=== PATIENT | female | born 1995 | race African-American/Black ===

== ENCOUNTER 2016-05-31 06:46 | Emergency (ER) | payer BC ==
[~2016-05-31] VITALS: Ht 157.5 cm; Wt 79.3 kg
[2016-05-31 06:53] VITALS: TEMP 37.8; O2SAT 99; Ht 157.5 cm; Wt 79.3 kg
[2016-05-31] MEDS ORDERED: OXYCODONE HCL IR 5 MG TAB (IMMEDIATE RELEASE) PO STA (07:10)
[2016-05-31] MEDS ORDERED: IBUPROFEN 600 MG TAB PO STA (07:10)
[2016-05-31 08:05] LABS: PARTIAL THROMBOPLASTIN RATIO 0.9; PROTHROMBIN TIME (PATIENT) 10.3 SECONDS (9.0-12.0)
[2016-05-31 08:12] LABS: BASO % 0.3 %; BASO ABS # 0.02 K/uL (0-0.2); EOS % 2.1 %; HEMATOCRIT 35.6 % (37-47); IG% 0.1 %; LYMPH % 15.3 %; LYMPH ABS # 1.18 K/uL (1.2-3.4); MEAN CELL VOLUME 73.4 fL (80-100); MEAN CORPUSCULAR HEMOGLOBIN 25.4 pg (25-34); MEAN CORPUSCULAR HGB CONC 34.6 g/dl (32-36); MEAN PLATELET VOLUME 12.3 fL (7.4-10.4); MONO % 4.2 %; PLATELET COUNT 301 K/uL (130-400); RED BLOOD COUNT 4.85 M/uL (4.2-5.4); WHITE BLOOD COUNT 7.69 K/uL (4.8-10.8)
[2016-05-31] MEDS ORDERED: OXYC-57 PO (08:13)
[2016-05-31] MEDS ORDERED: IBUP600T44 PO (08:13)
[2016-05-31] MEDS ORDERED: KETOROLAC TROMETHAMINE 30 MG/ML VIAL IV STA (08:16)
[2016-05-31 08:26] LABS: BUN/CREATININE RATIO 17.8 (10-20); CALCIUM 9.7 mg/dl (8.5-10.1); CREATININE 0.87 mg/dl (0.60-1.20); POTASSIUM 4.1 mmol/L (3.5-5.1)
--- NOTE | 2016-05-31 08:44 | EMERGENCY ROOM VISIT NOTE ---
History First contact with patient: 07:02 Chief Complaint: LEG PAIN,LEG INJURY Stated Complaint: SICKLE CELL CRISIS- RT LEG History of Present Illness The patient is a 20 year old female who presents to the Emergency Room with complaints of right leg pain since Saturday night. The patient states that she has sickle cell. On Saturday she started with some pain in the left hip. Saturday the pain in the left hip went away and then Saturday night she started getting pain in the right thigh it has progressively moved into her right hip as well as her right ankle. The patient denies any injury. The patient denies any redness or swelling to the leg. The patient denies any recent travel. 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 She is from [facility] and [facility] [employer]. She will be graduating in July. The patient states that she has oxycodone and Motrin 600 mg at home to take for pain. She took the oxycodone 5 mg at 3 AM with minimal relief of the pain. The patient denies any chest pain, shortness of breath, weakness. Review of Systems 10 system review was performed and was negative unless stated otherwise history of present illness. Past Medical/Surgical History Medical Problems: (1) Sickle cell anemia Family History Patient reports no known family medical history. Social History Smoking Status: Never Smoker Housing Status: lives with roommate Occupation Status: student Current/Historical Medications Scheduled Oxycodone/Acetaminophen 5MG/325MG (Percocet 5MG/325MG), 1 TAB PO QID Scheduled PRN Ibuprofen (Motrin), 600 MG PO Q6H PRN for Pain Allergies Coded Allergies: No Known Allergies (Unverified , 12/30/15) Physical Exam Vital Signs Date Time Temp Pulse Resp B/P Pulse Ox O2 Delivery O2 Flow Rate FiO2 05/31/16 08:27 18 135/66 05/31/16 06:53 37.8 103 18 138/88 99 Room Air Physical Exam GENERAL: 20-year-old female appears in no acute distress. MENTAL Status: Alert and oriented 3. EYES: PERRLA. EOMs intact. Conjunctiva without paleness. NECK: Supple, no lymphadenopathy noted. No carotid bruits noted. LUNGS: Clear auscultation without wheezes rales or rhonchi. CARDIAC: Regular rate and rhythm without murmur. Pulses is full and equal throughout. ABDOMEN: Positive bowel sounds all 4 quadrants. Soft, nontender to palpation without organomegaly or masses. LEFT HIP: Nontender to palpation. Full range of motion. RIGHT HIP: Nontender to palpation. Full range of motion. RIGHT THIGH: No erythema or edema noted. Slight tenderness palpation over the anterior aspect. RIGHT ANKLE: No erythema or edema noted. No deformity noted. Nontender to palpation. Full range of motion. Medical Decision & Procedures Laboratory Results 05/31/16 07:40 Red Blood Count 4.85, Mean Corpuscular Volume 73.4, Mean Corpuscular Hemoglobin 25.4, Mean Corpuscular Hemoglobin Concent 34.6, Mean Platelet Volume 12.3, Neutrophils (%) (Auto) 78.0, Lymphocytes (%) (Auto) 15.3, Monocytes (%) (Auto) 4.2, Eosinophils (%) (Auto) 2.1, Basophils (%) (Auto) 0.3, Neutrophils # (Auto) 6.00, Lymphocytes # (Auto) 1.18, Monocytes # (Auto) 0.32, Eosinophils # (Auto) 0.16, Basophils # (Auto) 0.02 05/31/16 07:40 Test 05/31/16 07:40 White Blood Count 7.69 K/uL (4.8-10.8) Red Blood Count 4.85 M/uL (4.2-5.4) Hemoglobin 12.3 g/dL (12.0-16.0) Hematocrit 35.6 % (37-47) Mean Corpuscular Volume 73.4 fL (80-100) Mean Corpuscular Hemoglobin 25.4 pg (25-34) Mean Corpuscular Hemoglobin Concent 34.6 g/dl (32-36) Platelet Count 301 K/uL (130-400) Mean Platelet Volume 12.3 fL (7.4-10.4) Neutrophils (%) (Auto) 78.0 % Lymphocytes (%) (Auto) 15.3 % Monocytes (%) (Auto) 4.2 % Eosinophils (%) (Auto) 2.1 % Basophils (%) (Auto) 0.3 % Neutrophils # (Auto) 6.00 K/uL (1.4-6.5) Lymphocytes # (Auto) 1.18 K/uL (1.2-3.4) Monocytes # (Auto) 0.32 K/uL (0.11-0.59) Eosinophils # (Auto) 0.16 K/uL (0-0.5) Basophils # (Auto) 0.02 K/uL (0-0.2) RDW Standard Deviation 36.8 fL (36.4-46.3) RDW Coefficient of Variation 13.6 % (11.5-14.5) Immature Granulocyte % (Auto) 0.1 % Immature Granulocyte # (Auto) 0.01 K/uL (0.00-0.02) Prothrombin Time 10.3 SECONDS (9.0-12.0) Prothromb Time International Ratio 1.0 (0.9-1.1) Activated Partial Thromboplast Time 23.3 SECONDS (21.0-31.0) Partial Thromboplastin Ratio 0.9 Anion Gap 7.0 mmol/L (3-11) Est Creatinine Clear Calc Drug Dose 99.8 ml/min Estimated GFR () 110.4 Estimated GFR (Non- 95.2 BUN/Creatinine Ratio 17.8 (10-20) Calcium Level 9.7 mg/dl (8.5-10.1) Total Bilirubin 0.7 mg/dl (0.2-1) Direct Bilirubin 0.2 mg/dl (0-0.2) Aspartate Amino Transf (AST/SGOT) 33 U/L (15-37) Alanine Aminotransferase (ALT/SGPT) 57 U/L (12-78) Alkaline Phosphatase 68 U/L (45-117) Total Protein 8.1 gm/dl (6.4-8.2) Albumin 4.3 gm/dl (3.4-5.0) Lipase 123 U/L (73-393) Medications Administered Medications (Trade) Dose Ordered Sig/Millie Route Start Time Stop Time Status Last Admin Dose Admin Ibuprofen (Motrin Tab) 600 mg NOW STAT PO 05/31/16 07:10 05/31/16 07:12 DC 05/31/16 07:25 600 MG Oxycodone HCl (Roxicodone Immediate Rel Tab) 5 mg NOW STAT PO 05/31/16 07:10 05/31/16 07:12 DC 05/31/16 07:25 5 MG Ketorolac Tromethamine (Toradol Inj) 30 mg NOW STAT IV 05/31/16 08:16 3/16/17 08:17 DC 05/31/16 08:26 30 MG ED Course The patient was evaluated. The patient was given OxyIR 5 mg by mouth and Motrin 600 mg by mouth for her pain. CBC and differential, coags, renal profile was ordered and the patient was reevaluated and her pain was still 8 out of 10. The patient was given Toradol 30 mg IV. The patient was reevaluated was feeling better. Labs are reviewed and were unremarkable. The patient's hemoglobin was 12. The patient was informed of all findings and discharged home in stable condition. Medical Decision Differential diagnosis include sickle cell crisis, leg strain, radicular pain Impression Primary Impression: Leg pain, right Departure Information Condition GOOD Referrals No Doctor, Assigned (PCP) Forms HOME CARE DOCUMENTATION FORM, IMPORTANT VISIT INFORMATION Patient Instructions [facility] [employer] Additional Instructions Ibuprofen 600 mg every 6 hours with food for pain. If symptoms persist or worsen, follow-up with [facility].
[2016-05-31 09:24] VITALS: BP 126/60; PULSE 57
[2016-05-31 09:24] LABS: COMPLETE YES; OVALOCYTES 1+
== END 2016-05-31 09:46 | disposition home or self-care (01) ==
LOC: C.EDB 06:48 → C.EDA 09:46
DX: M79.604 Pain in right leg (principal); D57.1 Sickle-cell disease without crisis

== ENCOUNTER 2016-05-31 18:55 | Inpatient (IN) | payer BC ==
[~2016-05-31] VITALS: Ht 157.5 cm; Wt 78.5 kg
[~2016-05-31 18:55] MED LIST: IBUP600T44 PO; OXYC-57 PO
[2016-05-31] MEDS ORDERED: SODIUM CHLORIDE 0.9% 1000ML 1,000 ML IV STA (19:37)
[2016-05-31] MEDS ORDERED: KETOROLAC TROMETHAMINE 30 MG/ML VIAL IV STA (19:37)
[2016-05-31] MEDS ORDERED: ONDANSETRON INJ 2 MG/ML 2 ML VIAL IV STA (19:37)
--- NOTE | 2016-05-31 19:41 | EMERGENCY ROOM VISIT NOTE ---
History Report prepared by Tita: Aracelis Haider Under the Supervision of: Dr. Romain Brown D.O. First contact with patient: 19:30 Chief Complaint: LEG PAIN,LEG INJURY History of Present Illness The patient is a 20 year old female who presents to the Emergency Room with complaints of worsening right leg pain for the past 4 days. She reports the pain started in her groin but has radiated into her thigh and down to her ankle. The patient has a history of sickle cell anemia and states the last time she was hospitalized was in 2014. She states "I think I'm having a sickle cell crisis in my right thigh". She rates her pain as an 8/10 and states it has been worsening throughout the day. She was seen here in the ED earlier today for the same symptoms and tried to go home, but states her pain worsened, so she came back. Ibuprofen has provided no relief. She admits to some low back pain, stating this is the first time she has experienced that type of pain. She admits to some recent nausea but has not vomited. She denies any recent cough or fever. Her LMP was last week and normal. She denies any chance of being . The patient also denies any urinary symptoms. 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 A total of 10 systems reviewed and were otherwise negative. Past Medical & Surgical Medical Problems: (1) Failure of outpatient treatment (2) Sickle cell anemia (3) Sickle cell pain crisis Family History Patient reports no known family medical history. Social History Smoking Status: Never Smoker Smokeless Tobacco Use: No Alcohol Use: none Drug Use: none Marital Status: single Housing Status: lives with roommate Occupation Status: student Current/Historical Medications Scheduled Oxycodone/Acetaminophen 5MG/325MG (Percocet 5MG/325MG), 1 TAB PO QID Scheduled PRN Ibuprofen (Motrin), 600 MG PO Q6H PRN for Pain Allergies Coded Allergies: No Known Allergies (Unverified , 05/31/16) Physical Exam Vital Signs Date Time Temp Pulse Resp B/P Pulse Ox O2 Delivery O2 Flow Rate FiO2 05/31/16 22:11 82 22 99 05/31/16 22:06 82 18 99 05/31/16 22:01 143/71 05/31/16 21:36 90 19 99 05/31/16 21:06 86 22 100 05/31/16 21:01 117/63 05/31/16 21:00 79 16 99 05/31/16 20:30 80 20 99 05/31/16 20:25 70 23 94 05/31/16 20:11 76 05/31/16 20:08 137/77 05/31/16 19:08 37.5 93 18 132/77 99 Room Air Physical Exam GENERAL: Patient is awake, alert, in no acute distress, patient is resting comfortably and showing no signs of anxiety EYES: The conjunctivae are clear. The pupils are round and reactive. EARS, NOSE, MOUTH AND THROAT: The nose is without any evidence of any deformity. Mucous membranes are moist tongue is midline NECK: The neck is nontender and supple. RESPIRATORY: Normal respiratory effort is noted there is no evidence of wheezing rhonchi or rales CARDIOVASCULAR: Regular rate and rhythm noted there no murmurs rubs or gallops normal S1 normal S2 GASTROINTESTINAL: The abdomen is soft. Bowel sounds are present in all quadrants. Abdomen is nontender MUSCULOSKELETAL/EXTREMITIES: There is no evidence of gross deformity full range of motion is noted in the hips and shoulders SKIN: There is no obvious evidence of any rash. There are no petechiae, pallor or cyanosis noted. NEUROLOGIC: Patient is awake alert and oriented x3 strength is symmetric patellar reflexes are 2+ bilaterally Medical Decision & Procedures ER Provider Diagnostic Interpretation: This X-Ray was reviewed and interpreted by myself and the radiologist. CHEST ONE VIEW PORTABLE IMPRESSION: No significant change compared to the prior study. No acute process. Electronically signed by: Adam Najera M.D. 05/31/2016 8:49 PM Laboratory Results 05/31/16 20:00 Red Blood Count 4.62, Mean Corpuscular Volume 74.0, Mean Corpuscular Hemoglobin 25.5, Mean Corpuscular Hemoglobin Concent 34.5, Mean Platelet Volume 12.1, Neutrophils (%) (Auto) 63.6, Lymphocytes (%) (Auto) 25.6, Monocytes (%) (Auto) 6.1, Eosinophils (%) (Auto) 4.3, Basophils (%) (Auto) 0.2, Neutrophils # (Auto) 3.95, Lymphocytes # (Auto) 1.59, Monocytes # (Auto) 0.38, Eosinophils # (Auto) 0.27, Basophils # (Auto) 0.01 05/31/16 20:00 Test 05/31/16 20:00 05/31/16 20:20 White Blood Count 6.21 K/uL (4.8-10.8) Red Blood Count 4.62 M/uL (4.2-5.4) Hemoglobin 11.8 g/dL (12.0-16.0) Hematocrit 34.2 % (37-47) Mean Corpuscular Volume 74.0 fL (80-100) Mean Corpuscular Hemoglobin 25.5 pg (25-34) Mean Corpuscular Hemoglobin Concent 34.5 g/dl (32-36) Platelet Count 286 K/uL (130-400) Mean Platelet Volume 12.1 fL (7.4-10.4) Neutrophils (%) (Auto) 63.6 % Lymphocytes (%) (Auto) 25.6 % Monocytes (%) (Auto) 6.1 % Eosinophils (%) (Auto) 4.3 % Basophils (%) (Auto) 0.2 % Neutrophils # (Auto) 3.95 K/uL (1.4-6.5) Lymphocytes # (Auto) 1.59 K/uL (1.2-3.4) Monocytes # (Auto) 0.38 K/uL (0.11-0.59) Eosinophils # (Auto) 0.27 K/uL (0-0.5) Basophils # (Auto) 0.01 K/uL (0-0.2) RDW Standard Deviation 37.1 fL (36.4-46.3) RDW Coefficient of Variation 13.8 % (11.5-14.5) Immature Granulocyte % (Auto) 0.2 % Immature Granulocyte # (Auto) 0.01 K/uL (0.00-0.02) Polychromasia 1+ Target Cells 1+ Absolute Reticulocyte Count 0.13 10^6/uL (0.02-0.10) Percent Reticulocyte Count 2.7 % (0.5-2.0) Immature Reticulocyte Fraction 15.0 % (3.0-15.9) Reticulocyte Hemoglobin Content 25.3 PG (28.2-36.6) Anion Gap 10.0 mmol/L (3-11) Est Creatinine Clear Calc Drug Dose 93.9 ml/min Estimated GFR () 103.2 Estimated GFR (Non- 89.0 BUN/Creatinine Ratio 18.8 (10-20) Calcium Level 9.4 mg/dl (8.5-10.1) Total Bilirubin 0.7 mg/dl (0.2-1) Direct Bilirubin 0.2 mg/dl (0-0.2) Aspartate Amino Transf (AST/SGOT) 31 U/L (15-37) Alanine Aminotransferase (ALT/SGPT) 50 U/L (12-78) Alkaline Phosphatase 64 U/L (45-117) Total Creatine Kinase 84 U/L (26-192) Total Protein 7.7 gm/dl (6.4-8.2) Albumin 4.1 gm/dl (3.4-5.0) Lipase 156 U/L (73-393) Human Chorionic Gonadotropin, Qual NEG (NEG) Urine Color YELLOW Urine Appearance CLEAR (CLEAR) Urine pH 5.5 (4.5-7.5) Urine Specific [place] 1.017 (1.000-1.030) Urine Protein NEG (NEG) Urine Glucose (UA) NEG (NEG) Urine Ketones NEG (NEG) Urine Occult Blood NEG (NEG) Urine Nitrite NEG (NEG) Urine Bilirubin NEG (NEG) Urine Urobilinogen NEG (NEG) Urine Leukocyte Esterase NEG (NEG) Laboratory results per my review. Medications Administered Medications (Trade) Dose Ordered Sig/Millie Route Start Time Stop Time Status Last Admin Dose Admin Ketorolac Tromethamine 30 mg 30 mg NOW STAT IV 05/31/16 19:37 05/31/16 19:39 DC 05/31/16 20:21 30 MG Sodium Chloride (Nss 1000ml) 1,000 ml @ 999 mls/hr Q1H1M STAT IV 05/31/16 19:37 05/31/16 20:37 DC 05/31/16 20:21 999 MLS/HR Ondansetron HCl (Zofran Inj) 4 mg NOW STAT IV 05/31/16 19:37 05/31/16 19:39 DC 05/31/16 20:21 4 MG Morphine Sulfate (MoRPHine SULFATE INJ) 4 mg Q15M PRN IV 05/31/16 19:45 06/01/16 00:17 DC 05/31/16 20:34 4 MG Hydromorphone HCl (Dilaudid Inj) 0.5 mg NOW STAT IV 05/31/16 22:16 05/31/16 22:24 DC 05/31/16 22:29 0.5 MG ED Course 1934: The patient was evaluated in room C1. A complete history and physical examination were performed. 1936: Zofran 4 mg IV, NSS 1000 ml @ 999 mls/hr IV, Toradol 30 mg IV. 1944: Morphine Sulfate 4 mg IV. 2129: I reevaluated the patient. She is not feeling much better and still complains of pain. I discussed her going home versus remaining in the hospital for further evaluation and management and she would like to remain in the hospital. I will contact the hospital medicine team. 2211: I discussed the patient's case with Dr. Riojas [facility] Hospitalist. The patient will be further evaluated. Medical Decision Prior records reviewed and summarized as above. Triage Nursing notes reviewed. The patient's history was concerning for swelling and redness of the skin. Differential diagnosis: Etiologies such as cellulitis, abscess, MRSA infection, DVT, necrotizing fasciitis, dermatitis, drug eruption, as well as others were entertained.. The patient is a 20-year-old female who has a history of sickle cell disease who presented to the emergency department for an evaluation of lower extremity pain. The patient was seen in our facility earlier today for similar complaints. She returns because of ongoing symptoms. She was treated with IV fluids IV pain medication in the emergency department. On subsequent reevaluation she was somewhat improved but requested to be evaluated by the inpatient hospitalist group for possible inpatient management of this ongoing pain. The patient was evaluated by the on-call marsha Barajasy hospitalist. She was evaluated multiple times. Consults Time Called: 2149 Consulting Physician: Dr. Riojas [facility] Hospitalist Returned Call: 2211 I discussed the patient's case with Dr. Riojas [facility] Hospitalist. The patient will be further evaluated. Impression Primary Impression: Sickle cell pain crisis Additional Impression: Lower extremity pain Scribe Attestation The scribe's documentation has been prepared under my direction and personally reviewed by me in its entirety. I confirm that the note above accurately reflects all work, treatment, procedures, and medical decision making performed by me. Departure Information Dispostion Being Evaluated By Hospitalist Referrals No Doctor, Assigned (PCP) Patient Instructions My [facility] Problem Qualifiers Additional Impression: Lower extremity pain Laterality: bilateral Qualified Codes: M79.604 - Pain in right leg; M79.605 - Pain in left leg
[2016-05-31] MEDS ORDERED: MoRPHine SULFATE 4 MG/ML 1 ML CARP\\VIAL IV PRN (19:45)
[2016-05-31 20:23] LABS: BASO % 0.2 %; BASO ABS # 0.01 K/uL (0-0.2); EOS % 4.3 %; HEMATOCRIT 34.2 % (37-47); IG% 0.2 %; LYMPH % 25.6 %; LYMPH ABS # 1.59 K/uL (1.2-3.4); MEAN CORPUSCULAR HEMOGLOBIN 25.5 pg (25-34); MEAN CORPUSCULAR HGB CONC 34.5 g/dl (32-36); MEAN PLATELET VOLUME 12.1 fL (7.4-10.4); MONO % 6.1 %; NEUT % 63.6 %; PLATELET COUNT 286 K/uL (130-400); RED BLOOD COUNT 4.62 M/uL (4.2-5.4); RETHE 25.3 PG (28.2-36.6); WHITE BLOOD COUNT 6.21 K/uL (4.8-10.8)
[2016-05-31 20:34] LABS: PREG INTERNAL NEGATIVE QC NEG CLEAR BACKGROUND; PREG INTERNAL POSITIVE QC POS CONTROL LINE
[2016-05-31 20:38] LABS: BUN/CREATININE RATIO 18.8 (10-20); CALCIUM 9.4 mg/dl (8.5-10.1); CREATININE 0.92 mg/dl (0.60-1.20); POTASSIUM 4.2 mmol/L (3.5-5.1)
[2016-05-31 20:42] LABS: COMPLETE YES
[2016-05-31 20:47] LABS: POLYCHROMASIA 1+; TARGET CELLS 1+
--- NOTE | 2016-05-31 20:50 | DIAGNOSTIC IMAGING REPORT ---
CHEST ONE VIEW PORTABLE HISTORY: sickle cell chest pain COMPARISON: None. FINDINGS: The lungs are clear. Cardiac silhouette remains top normal in size. No pleural effusions. No pneumothorax. IMPRESSION: No significant change compared to the prior study. No acute process. Electronically signed by: Adam Najera M.D. 05/31/2016 8:49 PM Dictated Date/Time: 05/31/2016 8:48 PM
[2016-05-31 20:57] LABS: URINE APPEARANCE CLEAR (CLEAR); URINE BILIRUBIN NEG (NEG); URINE COLOR YELLOW; URINE NITRITE NEG (NEG); URINE PH 5.5 (4.5-7.5); URINE SPECIFIC GRAVITY 1.017 (1.000-1.030); UROBILINOGEN NEG (NEG)
[2016-05-31 21:04] LABS: MANUAL MICROSCOPIC REQUIRED? NO; REVIEW REQ? NO
[2016-05-31] MEDS ORDERED: HYDROmorphone INJ 0.5 MG/0.5 ML SYR IV STA (22:16)
--- NOTE | 2016-05-31 22:25 | History and Physical ---
History & Physical Date & Time of Service: May 31, 2016 at 22:24 Chief Complaint: Leg pain, Sickle cell disease Primary Care Physician: No Doctor, Assigned History of Present Illness Source: patient Kennedy is a 20 year old female with Sickle Cell Disease who presents with bilateral leg pain since Saturday. She reports she noticed it first in her left leg, then it went away Saturday, then returned Saturday with pain in the right lower leg, and in her posterior pelvis. She took her home pack of Ibuprofen 600mg and Oxycodone 5-325mg at home but it did not help much. Her pain persisted and she came into the ED today. She was given her usual PO meds, as well as a dose of Toradol 30mg, which helped her symptoms for a while so she was sent home. She returned a few hours later as the pain had returned and was worse. Her mother also called while we were discussing her case and reported the pts care is usually at the [facility]. Her previous pain has also been in her legs. Her only episode of acute chest syndrome was when she was 5 years old. She has been admitted about 6 times in her life. Past Medical/Surgical History Medical Problems: (1) Sickle cell anemia Status: Chronic Family History Patient reports no known family medical history. No pertinent FHx. Social History Smoking Status: Never Smoker Alcohol Use: none Marital Status: single Housing status: lives with friends Occupational Status: [employer] student Allergies Coded Allergies: No Known Allergies (Unverified , 05/31/16) Home Medications Scheduled Oxycodone/Acetaminophen 5MG/325MG (Percocet 5MG/325MG), 1 TAB PO QID Scheduled PRN Ibuprofen (Motrin), 600 MG PO Q6H PRN for Pain Review of Systems See HPI for pertinent positives & negatives. A total of 10 systems reviewed and were otherwise negative. Physical Exam Vital Signs Date Time Temp Pulse Resp B/P Pulse Ox O2 Delivery O2 Flow Rate FiO2 05/31/16 21:01 117/63 05/31/16 21:00 79 16 99 05/31/16 20:30 80 20 99 05/31/16 20:25 70 23 94 05/31/16 20:11 76 05/31/16 20:08 137/77 05/31/16 19:08 37.5 93 18 132/77 99 Room Air General Appearance: WD/WN, + mild distress Head: normocephalic, atraumatic Eyes: normal inspection, PERRL ENT: hearing grossly normal Neck: supple, no JVD Respiratory/Chest: lungs clear, normal breath sounds, no respiratory distress Cardiovascular: regular rate, rhythm, no murmur Abdomen/GI: normal bowel sounds, non tender, soft Back: no CVA tenderness, no muscle spasm Extremities/Musculoskelatal: no calf tenderness, no pedal edema Diagnostics Laboratory Results Results Past 24 Hours Test 05/31/16 20:00 05/31/16 20:20 Range/Units White Blood Count 6.21 4.8-10.8 K/uL Red Blood Count 4.62 4.2-5.4 M/uL Hemoglobin 11.8 12.0-16.0 g/dL Hematocrit 34.2 37-47 % Mean Corpuscular Volume 74.0 80-100 fL Mean Corpuscular Hemoglobin 25.5 25-34 pg Mean Corpuscular Hemoglobin Concent 34.5 32-36 g/dl Platelet Count 286 130-400 K/uL Mean Platelet Volume 12.1 7.4-10.4 fL Neutrophils (%) (Auto) 63.6 % Lymphocytes (%) (Auto) 25.6 % Monocytes (%) (Auto) 6.1 % Eosinophils (%) (Auto) 4.3 % Basophils (%) (Auto) 0.2 % Neutrophils # (Auto) 3.95 1.4-6.5 K/uL Lymphocytes # (Auto) 1.59 1.2-3.4 K/uL Monocytes # (Auto) 0.38 0.11-0.59 K/uL Eosinophils # (Auto) 0.27 0-0.5 K/uL Basophils # (Auto) 0.01 0-0.2 K/uL RDW Standard Deviation 37.1 36.4-46.3 fL RDW Coefficient of Variation 13.8 11.5-14.5 % Immature Granulocyte % (Auto) 0.2 % Immature Granulocyte # (Auto) 0.01 0.00-0.02 K/uL Polychromasia 1+ Target Cells 1+ Absolute Reticulocyte Count 0.13 0.02-0.10 10^6/uL Percent Reticulocyte Count 2.7 0.5-2.0 % Immature Reticulocyte Fraction 15.0 3.0-15.9 % Reticulocyte Hemoglobin Content 25.3 28.2-36.6 PG Sodium Level 143 136-145 mmol/L Potassium Level 4.2 3.5-5.1 mmol/L Chloride Level 105 98-107 mmol/L Carbon Dioxide Level 28 21-32 mmol/L Anion Gap 10.0 3-11 mmol/L Blood Urea Nitrogen 17 7-18 mg/dl Creatinine 0.92 0.60-1.20 mg/dl Est Creatinine Clear Calc Drug Dose 93.9 ml/min Estimated GFR () 103.2 Estimated GFR (Non- 89.0 BUN/Creatinine Ratio 18.8 10-20 Random Glucose 96 70-99 mg/dl Calcium Level 9.4 8.5-10.1 mg/dl Total Bilirubin 0.7 0.2-1 mg/dl Direct Bilirubin 0.2 0-0.2 mg/dl Aspartate Amino Transf (AST/SGOT) 31 15-37 U/L Alanine Aminotransferase (ALT/SGPT) 50 12-78 U/L Alkaline Phosphatase 64 45-117 U/L Total Creatine Kinase 84 26-192 U/L Total Protein 7.7 6.4-8.2 gm/dl Albumin 4.1 3.4-5.0 gm/dl Lipase 156 73-393 U/L Human Chorionic Gonadotropin, Qual NEG NEG Urine Color YELLOW Urine Appearance CLEAR CLEAR Urine pH 5.5 4.5-7.5 Urine Specific [place] 1.017 1.000-1.030 Urine Protein NEG NEG Urine Glucose (UA) NEG NEG Urine Ketones NEG NEG Urine Occult Blood NEG NEG Urine Nitrite NEG NEG Urine Bilirubin NEG NEG Urine Urobilinogen NEG NEG Urine Leukocyte Esterase NEG NEG Impression Assessment and Plan 20 yo F with sickle cell disease, with 5 days of leg pain with failure of outpatient treatment. Sickle cell crisis pain - Dilaudid IV 0.5mg q4h, one dose now - IV fluids for hydration - Regular diet - Transitioning to an adult Hem-Onc in [facility]. Has not needed hydroxyurea due to infrequency of crises, though this was discussed with her. 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 I discussed the case with the resident and agree with the findings and plan as documented in the note. Any exceptions or clarifications are listed here: Pt admitted with sickle pain crisis She has crises infrequently and has required hospitalization once in the past 2 years She has no additional complaint aside from pain in her legs OE AAO x 3 S1,2 R CTAB NTND P: IVF, pain control Discussed use of Hydroxuria with pt Documented By: Shankar Riojas Level of Care Med/Surg Resuscitation Status FULL RESUSCITATION VTE Prophylaxis VTE Risk Assessment Done? Y/N: Yes Risk Level: Moderate Given or contraindicated: Unfractionated heparin SQ Resident Tracking Resident Involvement: Resident Care Provided Care Provided: Adult Hospital Medicine
[2016-05-31] MEDS ORDERED: ZOLPIDEM TARTRATE 5 MG TAB PO PRN (22:30)
[2016-05-31] MEDS ORDERED: DiphenhydrAMINE HCL 50 MG/ML VIAL IV PRN (22:30)
[2016-06-01 00:12] VITALS: BP 121/71; PULSE 87; TEMP 37; O2SAT 98; Ht 157.5 cm; Wt 78.5 kg
[2016-06-01 00:20] VITALS: BP 121/71; PULSE 87; TEMP 37; O2SAT 98
[2016-06-01] MEDS: HYDROmorphone INJ 0.5 MG/0.5 ML SYR IV PRN ×6 (02:27→21:15)
[2016-06-01] MEDS: SODIUM CHLOR 0.45% + 20MEQ KCL 1,000 ML IV SCH ×2 (05:40→12:22)
[2016-06-01 07:34] VITALS: BP 121/70; PULSE 82; TEMP 36.8; O2SAT 99
[2016-06-01] MEDS: ENOXAPARIN 40 MG/0.4 ML SYR SQ SCH (07:55)
[2016-06-01 10:21] VITALS: BP 135/86; PULSE 76; O2SAT 100
--- NOTE | 2016-06-01 10:51 | Family Medicine Progress Note ---
Progress Note Date of Service Jun 01, 2016. Subjective Pt evaluation today including: conversation w/ patient, physical exam, chart review, lab review, review of studies, review of inpatient medication list Pain: reports 8/10 R Upper thigh pain, Left Flank pain PO Intake: adequate Voiding: no voiding problems Patient reports 8/10 throbbing Rt Upper thigh pain in addition to Rt flank pain. Pain has been improved with Dilaudid administration. She denied CP, SOB, Palpitation, L LE pain. abdominal pain, N/V Constitutional: No chills, No fever, No weakness Respiratory: + shortness of breath, No cough, No sputum, No wheezing Cardiovascular: No chest pain, No edema, No palpitations Abdomen: No diarrhea, No nausea, No pain, No vomiting Neurologic: No numbness/tingling, No weakness Heme: + problem reported (Sickle Cell Disease) Skin: No itch, No new/changing skin lesions, No rash Medications Current Inpatient Medications Medications (Trade) Dose Ordered Sig/Millie Route Start Time Stop Time Status Last Admin Dose Admin Enoxaparin Sodium (Lovenox Inj) 40 mg DAILY SQ 06/01/16 09:00 07/01/16 08:59 06/01/16 07:55 40 MG Magnesium Hydroxide (Milk Of Magnesia Susp) 30 ml Q6H PRN PO 05/31/16 22:30 06/30/16 22:29 Polyethylene (Miralax Powder Packet) 17 gm DAILY PRN PO 05/31/16 22:30 06/30/16 22:29 Zolpidem Tartrate (Ambien Tab) 5 mg HSZ PRN PO 05/31/16 22:30 06/30/16 22:29 Ondansetron HCl (Zofran Inj) 4 mg Q6H PRN IV 05/31/16 22:30 06/30/16 22:29 Hydromorphone HCl (Dilaudid Inj) 0.5 mg Q4H PRN IV 05/31/16 22:30 06/14/16 22:29 06/01/16 10:23 0.5 MG Diphenhydramine HCl 25 mg 25 mg Q12H PRN IV 05/31/16 22:30 06/30/16 22:29 06/01/16 05:42 25 MG Potassium Chloride/Sodium Chloride (1/2 Nss + 20meq KCl 1000ml) 1,000 ml @ 150 mls/hr Q6H40M IV 06/01/16 00:30 06/01/16 19:19 06/01/16 05:40 150 MLS/HR Objective Vital Signs Date Time Temp Pulse Resp B/P Pulse Ox O2 Delivery O2 Flow Rate FiO2 06/01/16 10:21 76 20 135/86 100 06/01/16 08:23 Room Air 06/01/16 07:34 36.8 82 18 121/70 99 Room Air 06/01/16 00:20 37.0 87 18 121/71 98 Room Air 06/01/16 00:12 37.0 87 18 121/71 98 Room Air 06/01/16 00:12 98 Room Air 05/31/16 23:55 88 20 117/68 98 05/31/16 23:11 80 18 05/31/16 23:01 138/79 05/31/16 22:41 89 19 05/31/16 22:11 82 22 99 05/31/16 22:06 82 18 99 05/31/16 22:01 143/71 05/31/16 21:36 90 19 99 05/31/16 21:06 86 22 100 05/31/16 21:01 117/63 05/31/16 21:00 79 16 99 05/31/16 20:30 80 20 99 05/31/16 20:25 70 23 94 05/31/16 20:11 76 05/31/16 20:08 137/77 05/31/16 19:08 37.5 93 18 132/77 99 Room Air Physical Exam General Appearance: WD/WN, + mild distress Eyes: normal inspection, PERRL, EOMI Neck: supple, no adenopathy, no carotid bruits, trachea midline Respiratory/Chest: lungs clear, normal breath sounds, no respiratory distress Cardiovascular: regular rate, rhythm, no murmur Abdomen: normal bowel sounds, non tender, soft Extremities: + pertinent finding (Rt Thigh diffusely tender to palpation. ) Neurologic/Psychiatric: alert, normal mood/affect, oriented x 3 Skin: normal color, warm/dry, no rash Laboratory Results Results Past 24 Hours Test 05/31/16 20:00 05/31/16 20:20 06/01/16 11:25 Range/Units White Blood Count 6.21 4.8-10.8 K/uL Red Blood Count 4.62 4.2-5.4 M/uL Hemoglobin 11.8 12.0-16.0 g/dL Hematocrit 34.2 37-47 % Mean Corpuscular Volume 74.0 80-100 fL Mean Corpuscular Hemoglobin 25.5 25-34 pg Mean Corpuscular Hemoglobin Concent 34.5 32-36 g/dl Platelet Count 286 130-400 K/uL Mean Platelet Volume 12.1 7.4-10.4 fL Neutrophils (%) (Auto) 63.6 % Lymphocytes (%) (Auto) 25.6 % Monocytes (%) (Auto) 6.1 % Eosinophils (%) (Auto) 4.3 % Basophils (%) (Auto) 0.2 % Neutrophils # (Auto) 3.95 1.4-6.5 K/uL Lymphocytes # (Auto) 1.59 1.2-3.4 K/uL Monocytes # (Auto) 0.38 0.11-0.59 K/uL Eosinophils # (Auto) 0.27 0-0.5 K/uL Basophils # (Auto) 0.01 0-0.2 K/uL RDW Standard Deviation 37.1 36.4-46.3 fL RDW Coefficient of Variation 13.8 11.5-14.5 % Immature Granulocyte % (Auto) 0.2 % Immature Granulocyte # (Auto) 0.01 0.00-0.02 K/uL Polychromasia 1+ Target Cells 1+ Absolute Reticulocyte Count 0.13 0.02-0.10 10^6/uL Percent Reticulocyte Count 2.7 0.5-2.0 % Immature Reticulocyte Fraction 15.0 3.0-15.9 % Reticulocyte Hemoglobin Content 25.3 28.2-36.6 PG Sodium Level 143 136-145 mmol/L Potassium Level 4.2 3.5-5.1 mmol/L Chloride Level 105 98-107 mmol/L Carbon Dioxide Level 28 21-32 mmol/L Anion Gap 10.0 3-11 mmol/L Blood Urea Nitrogen 17 7-18 mg/dl Creatinine 0.92 0.60-1.20 mg/dl Est Creatinine Clear Calc Drug Dose 93.9 ml/min Estimated GFR () 103.2 Estimated GFR (Non- 89.0 BUN/Creatinine Ratio 18.8 10-20 Random Glucose 96 70-99 mg/dl Calcium Level 9.4 8.5-10.1 mg/dl Total Bilirubin 0.7 0.2-1 mg/dl Direct Bilirubin 0.2 0-0.2 mg/dl Aspartate Amino Transf (AST/SGOT) 31 15-37 U/L Alanine Aminotransferase (ALT/SGPT) 50 12-78 U/L Alkaline Phosphatase 64 45-117 U/L Total Creatine Kinase 84 26-192 U/L Total Protein 7.7 6.4-8.2 gm/dl Albumin 4.1 3.4-5.0 gm/dl Lipase 156 73-393 U/L Human Chorionic Gonadotropin, Qual NEG NEG Urine Color YELLOW Urine Appearance CLEAR CLEAR Urine pH 5.5 4.5-7.5 Urine Specific [place] 1.017 1.000-1.030 Urine Protein NEG NEG Urine Glucose (UA) NEG NEG Urine Ketones NEG NEG Urine Occult Blood NEG NEG Urine Nitrite NEG NEG Urine Bilirubin NEG NEG Urine Urobilinogen NEG NEG Urine Leukocyte Esterase NEG NEG Troponin I < 0.015 0-0.045 ng/ml Assessment and Plan 20 yo F with hx of Sickle Cell disease with infrequent crises ( 6 in her life) p /w acute pain crises involving juan pablo LE for 5 days with not relieved by ibuprofen and percocet taken at home. admitted with Iv Fluids, IV Dilaudid RLE pain, Rt flank pain -secondary to Sickle Cell Pain crisis -Pain management Dilaudid .5mg q4 PRN -Consider Toradol PRN if pain not controlled in between Dilaudid Hx Sickle Cell Disease -infrequent crises -no symptomatic anemia -transfusion not indicated -Hydroxyurea not indicated at this time due to infrequency of crises Addendum to note: Chest Pain -around 10:15 Patient reported central Chest Pain, 4/10 intensity described as pressure. EKG was normal. CXR was done to rule out new infiltrate which would be consistent Acute Chest Syndrome. Imaging showed no acute changes. Patient was given IV DIlausdi at 10:23. Pain subsided per patient. NO new findings on exam. Continued [facility] stay due to: inadequate oral pain control Discharge planning: home Resident Tracking Resident Involvement: Resident Care Provided Care Provided: Adult Hospital Medicine Reviewed: Pt Seen/Exam by Me History Pt had an episode of sternal chest pain this AM that resolved spontaneously. No SOB or lightheadedness. On admission, pt was having b/l LE pain with R>L. L LE pain has resolved, however R LE pain persists and radiates into her R flank. Ate without issue. Pt states that 0.5mg dilaudid helps initially, but is wearing off after about 1- 1.5hrs. She states that prior crisis has been managed with morphine and toradol. Pt states she was in [place] over spring and it was warmer than here, which is what she feels caused her crisis. No recent illness or decreased hydration status, denies alcohol use or excessive exercise, caffeine. Agree with HPI/ROS as noted. General Appearance: WD/WN, no apparent distress Respiratory: normal breath sounds, no respiratory distress Cardiovascular: normal peripheral pulses, regular rate, rhythm Gastrointestinal: non tender, soft Extremities: non-tender, no pedal edema Neurologic/Psychiatric: alert, normal mood/affect Skin Characteristics: normal color, warm/dry Assessment/Plan Resident Physician Supervision Note: I discussed the case with the resident and agree with the findings and plan as documented in the note. Any exceptions or clarifications are listed here: Sickle cell crisis, pt with hx of same, likely precipitated by cold weather Cr WNL Improving on IVF, pain meds Add toradol PRN, if no improvement will consider increasing dilaudid to 1mg doses Chest pain early that has resolved EKG, CXR, trop neg Documented By: Ayesha Thapa
--- NOTE | 2016-06-01 12:00 | DIAGNOSTIC IMAGING REPORT ---
TWO VIEW CHEST CLINICAL HISTORY: Atypical chest pain. Dyspnea. FINDINGS: PA and lateral chest radiographs are compared to study dated 05/31/16. The cardiomediastinal silhouette is unremarkable. The lungs and pleural spaces are clear. There is no pneumothorax. The bony thorax appears intact. IMPRESSION: No active disease in the chest and no change from yesterday. Electronically signed by: Tan Overton M.D. 06/01/2016 11:59 AM Dictated Date/Time: 06/01/2016 11:58 AM
[2016-06-01] MEDS ORDERED: HYDROmorphone INJ 0.5 MG/0.5 ML SYR IV ONE (12:15)
[2016-06-01 14:45] VITALS: BP 136/77; PULSE 93; TEMP 37.2; O2SAT 97
[2016-06-01] MEDS: KETOROLAC TROMETHAMINE 30 MG/ML VIAL IV PRN ×2 (14:50→19:32)
[2016-06-01] MEDS: ONDANSETRON INJ 2 MG/ML 2 ML VIAL IV PRN (21:14)
[2016-06-02] VITALS (7 sets, daily range): BP systolic 115–136; BP diastolic 71–79; PULSE 72–89; TEMP 36.4–36.9; O2SAT 98–100
[2016-06-02] MEDS: KETOROLAC TROMETHAMINE 30 MG/ML VIAL IV PRN ×4 (00:33→18:26)
[2016-06-02] MEDS: HYDROmorphone INJ 0.5 MG/0.5 ML SYR IV PRN ×4 (04:21→22:04)
[2016-06-02 06:43] LABS: BASO % 0.7 %; BASO ABS # 0.04 K/uL (0-0.2); EOS % 10.3 %; HEMATOCRIT 31.4 % (37-47); IG% 0.2 %; LYMPH % 30.5 %; LYMPH ABS # 1.72 K/uL (1.2-3.4); MEAN CELL VOLUME 74.4 fL (80-100); MEAN CORPUSCULAR HEMOGLOBIN 25.1 pg (25-34); MEAN CORPUSCULAR HGB CONC 33.8 g/dl (32-36); MEAN PLATELET VOLUME 11.4 fL (7.4-10.4); NEUT % 49.3 %; PLATELET COUNT 219 K/uL (130-400); RED BLOOD COUNT 4.22 M/uL (4.2-5.4); WHITE BLOOD COUNT 5.64 K/uL (4.8-10.8)
[2016-06-02 07:14] LABS: BUN/CREATININE RATIO 16.5 (10-20); CALCIUM 9.1 mg/dl (8.5-10.1); CREATININE 0.79 mg/dl (0.60-1.20); POTASSIUM 4.3 mmol/L (3.5-5.1)
[2016-06-02 07:39] LABS: COMPLETE YES; MICROCYTOSIS PRESENT
[2016-06-02] MEDS: ENOXAPARIN 40 MG/0.4 ML SYR SQ SCH (09:03)
[2016-06-02] MEDS ORDERED: ACETAMINOPHEN 325 MG TAB PO PRN (10:00)
[2016-06-02] MEDS: MAGNESIUM HYDROXIDE SUSP 30 ML UDC PO PRN (11:22)
--- NOTE | 2016-06-02 12:30 | Family Medicine Progress Note ---
Progress Note Date of Service Jun 02, 2016. Subjective Pt evaluation today including: conversation w/ patient, physical exam, chart review, lab review Pain: RLE pain Voiding: no voiding problems Patient was seen at the bedside. She still has pain on her RLE. She mostly has the pain when she moves round, rates it as 6/10. She received Toradol around 6am today and she thinks it is helping her with the pain. Also complains of migraine and states that she usually takes Excedrin for it. Tolerating food well. Denies nausea, vomiting, abdominal pain, chest pain, SOB, or any other additional symptoms. Constitutional: No chills, No fever, No weakness Respiratory: No cough, No dyspnea at rest, No dyspnea on exertion, No shortness of breath, No sputum, No wheezing Cardiovascular: No chest pain, No edema Abdomen: No constipation, No diarrhea, No nausea, No pain, No vomiting Musculoskeletal: + problem reported (RLE pain (6/10)) Female : No dysuria Neurologic: No weakness Heme: No abnormal bleeding/bruising Skin: No rash Medications Current Inpatient Medications Medications (Trade) Dose Ordered Sig/Millie Route Start Time Stop Time Status Last Admin Dose Admin Enoxaparin Sodium (Lovenox Inj) 40 mg DAILY SQ 06/01/16 09:00 07/01/16 08:59 06/02/16 09:03 40 MG Magnesium Hydroxide (Milk Of Magnesia Susp) 30 ml Q6H PRN PO 05/31/16 22:30 06/30/16 22:29 06/02/16 11:22 30 ML Polyethylene (Miralax Powder Packet) 17 gm DAILY PRN PO 05/31/16 22:30 06/30/16 22:29 Zolpidem Tartrate (Ambien Tab) 5 mg HSZ PRN PO 05/31/16 22:30 06/30/16 22:29 Ondansetron HCl (Zofran Inj) 4 mg Q6H PRN IV 05/31/16 22:30 06/30/16 22:29 06/01/16 21:14 4 MG Hydromorphone HCl (Dilaudid Inj) 0.5 mg Q4H PRN IV 05/31/16 22:30 06/14/16 22:29 06/02/16 11:22 0.5 MG Diphenhydramine HCl (Benadryl Inj) 25 mg Q12H PRN IV 05/31/16 22:30 06/30/16 22:29 06/01/16 05:42 25 MG Ketorolac Tromethamine (Toradol Inj) 30 mg Q4H PRN IV 06/01/16 12:45 06/06/16 12:44 06/02/16 06:37 30 MG Acetaminophen 650 mg 650 mg Q4H PRN PO 06/02/16 10:00 07/02/16 09:59 Potassium Chloride/Sodium Chloride (1/2 Nss + 20meq KCl 1000ml) 1,000 ml @ 150 mls/hr Q6H40M IV 06/02/16 12:00 07/02/16 11:59 UNV Objective Vital Signs Date Time Temp Pulse Resp B/P Pulse Ox O2 Delivery O2 Flow Rate FiO2 06/02/16 08:00 98 Room Air 06/02/16 07:22 36.7 75 20 122/78 98 06/02/16 00:37 36.9 72 16 136/79 100 Room Air 06/02/16 00:35 100 Room Air 06/01/16 16:30 Room Air 06/01/16 14:45 37.2 93 20 136/77 97 Room Air Physical Exam General Appearance: WD/WN, no apparent distress Neck: supple, trachea midline Respiratory/Chest: chest non-tender, lungs clear, normal breath sounds, no respiratory distress, no accessory muscle use Cardiovascular: regular rate, rhythm, no edema, no murmur Abdomen: normal bowel sounds, non tender, soft Extremities: no pedal edema, no calf tenderness Neurologic/Psychiatric: alert, normal mood/affect, oriented x 3 Skin: normal color, warm/dry, no rash Laboratory Results Results Past 24 Hours Test 06/02/16 06:32 Range/Units White Blood Count 5.64 4.8-10.8 K/uL Red Blood Count 4.22 4.2-5.4 M/uL Hemoglobin 10.6 12.0-16.0 g/dL Hematocrit 31.4 37-47 % Mean Corpuscular Volume 74.4 80-100 fL Mean Corpuscular Hemoglobin 25.1 25-34 pg Mean Corpuscular Hemoglobin Concent 33.8 32-36 g/dl Platelet Count 219 130-400 K/uL Mean Platelet Volume 11.4 7.4-10.4 fL Neutrophils (%) (Auto) 49.3 % Lymphocytes (%) (Auto) 30.5 % Monocytes (%) (Auto) 9.0 % Eosinophils (%) (Auto) 10.3 % Basophils (%) (Auto) 0.7 % Neutrophils # (Auto) 2.78 1.4-6.5 K/uL Lymphocytes # (Auto) 1.72 1.2-3.4 K/uL Monocytes # (Auto) 0.51 0.11-0.59 K/uL Eosinophils # (Auto) 0.58 0-0.5 K/uL Basophils # (Auto) 0.04 0-0.2 K/uL RDW Standard Deviation 37.3 36.4-46.3 fL RDW Coefficient of Variation 13.7 11.5-14.5 % Immature Granulocyte % (Auto) 0.2 % Immature Granulocyte # (Auto) 0.01 0.00-0.02 K/uL Microcytosis PRESENT Sodium Level 141 136-145 mmol/L Potassium Level 4.3 3.5-5.1 mmol/L Chloride Level 107 98-107 mmol/L Carbon Dioxide Level 26 21-32 mmol/L Anion Gap 8.0 3-11 mmol/L Blood Urea Nitrogen 13 7-18 mg/dl Creatinine 0.79 0.60-1.20 mg/dl Est Creatinine Clear Calc Drug Dose 109.3 ml/min Estimated GFR () 124.0 Estimated GFR (Non- 107.0 BUN/Creatinine Ratio 16.5 10-20 Random Glucose 94 70-99 mg/dl Calcium Level 9.1 8.5-10.1 mg/dl Assessment and Plan This is a 20 y/o female with hx of Sickle Cell Disease presented to the ED with acute pain crises involving b/l LE X 5 days, which is not relieved by ibuprofen and Percocet at home. Patient was admitted to the hospital and started on IV Fluids and IV Dilaudid. 1. RLE pain, Rt flank pain - Secondary to Sickle Cell Pain crisis - Pain management with Dilaudid .5mg q4h and Toradol 30mg Q4h prn - C/w 1/2NSS+20meq KCL @150mls/hr - Will consider increasing the dose of Dilaudid to 1mg if pain is not controlled 2. Hx Sickle Cell Disease - Patient has infrequent crises - Transfusion is not indicated at his moment given asymptomatic - Hydroxyurea not indicated at this time due to infrequency of crises 3. Migraine - Patient complains of migraine headache today - Will start Acetaminophen 650mg q4h prn 4. DVT Prophylaxis - Lovenox 40mg 5. Code Status - Full code Reviewed: Pt Seen/Exam by Me History Pt's pain is now only R thigh and mostly with ambulation. Has occasional pain at rest, but overall improving. Toradol is helping. Eating without issue. No further chest pain episodes. No SOB. Agree with HPI/ROS as noted. General Appearance: WD/WN, no apparent distress Respiratory: normal breath sounds, no respiratory distress Cardiovascular: normal peripheral pulses, regular rate, rhythm Gastrointestinal: non tender, soft Extremities: non-tender, no pedal edema Neurologic/Psychiatric: alert, normal mood/affect Skin Characteristics: normal color, warm/dry Assessment/Plan Resident Physician Supervision Note: I discussed the case with the resident and agree with the findings and plan as documented in the note. Any exceptions or clarifications are listed here: Sickle cell crisis, pt with hx of same, likely precipitated by cold weather Cr WNL Improving on IVF, pain meds Chest pain episode x1 and no recurrence EKG, CXR, trop neg Documented By: Ayesha Thapa
[2016-06-02] MEDS: SODIUM CHLOR 0.45% + 20MEQ KCL 1,000 ML IV SCH ×2 (13:34→20:18)
[2016-06-02] MEDS: ONDANSETRON INJ 2 MG/ML 2 ML VIAL IV PRN (20:20)
[2016-06-03] MEDS: KETOROLAC TROMETHAMINE 30 MG/ML VIAL IV PRN ×4 (01:09→23:19)
[2016-06-03] MEDS: SODIUM CHLOR 0.45% + 20MEQ KCL 1,000 ML IV SCH ×4 (02:42→23:16)
[2016-06-03] MEDS: HYDROmorphone INJ 0.5 MG/0.5 ML SYR IV PRN ×2 (05:42→12:47)
[2016-06-03 08:00] VITALS: O2SAT 98
[2016-06-03 08:14] VITALS: BP 118/68; PULSE 76; TEMP 36.5; O2SAT 98
[2016-06-03] MEDS: ENOXAPARIN 40 MG/0.4 ML SYR SQ SCH (08:32)
[2016-06-03] MEDS: POLYETHYLENE (MIRALAX) 17 GM PACK PO PRN (08:44)
[2016-06-03 15:57] VITALS: BP 118/74; PULSE 93; TEMP 37; O2SAT 99
--- NOTE | 2016-06-03 16:25 | Family Medicine Progress Note ---
Progress Note Date of Service Jun 03, 2016. Subjective Pt evaluation today including: conversation w/ patient, physical exam, lab review Pain: RLE pain Voiding: no voiding problems Patient was seen at the bedside. She states that her pain is mostly on the right knee and thigh now. She rates the pain this morning as 7/10. She does have some intermittent pain at rest. Per patient her comfortable level of pain would be 3. She is tolerating PO intake well. She states that she thinks she is feeling better than before and pain is improving. Constitutional: No chills, No fever Respiratory: No cough, No dyspnea at rest, No dyspnea on exertion, No shortness of breath, No sputum, No wheezing Cardiovascular: No chest pain, No edema Abdomen: No constipation, No diarrhea, No nausea, No pain, No vomiting Musculoskeletal: + problem reported (Right knee and thigh pain) Female : No dysuria Skin: No rash Medications Current Inpatient Medications Medications (Trade) Dose Ordered Sig/Millie Route Start Time Stop Time Status Last Admin Dose Admin Enoxaparin Sodium (Lovenox Inj) 40 mg DAILY SQ 06/01/16 09:00 07/01/16 08:59 06/03/16 08:32 40 MG Magnesium Hydroxide (Milk Of Magnesia Susp) 30 ml Q6H PRN PO 05/31/16 22:30 06/30/16 22:29 06/02/16 11:22 30 ML Polyethylene (Miralax Powder Packet) 17 gm DAILY PRN PO 05/31/16 22:30 06/30/16 22:29 06/03/16 08:44 17 GM Zolpidem Tartrate (Ambien Tab) 5 mg HSZ PRN PO 05/31/16 22:30 06/30/16 22:29 Ondansetron HCl (Zofran Inj) 4 mg Q6H PRN IV 05/31/16 22:30 06/30/16 22:29 06/02/16 20:20 4 MG Hydromorphone HCl (Dilaudid Inj) 0.5 mg Q4H PRN IV 05/31/16 22:30 06/14/16 22:29 06/03/16 12:47 0.5 MG Diphenhydramine HCl (Benadryl Inj) 25 mg Q12H PRN IV 05/31/16 22:30 06/30/16 22:29 06/01/16 05:42 25 MG Ketorolac Tromethamine (Toradol Inj) 30 mg Q4H PRN IV 06/01/16 12:45 06/06/16 12:44 06/03/16 15:20 30 MG Acetaminophen 650 mg 650 mg Q4H PRN PO 06/02/16 10:00 07/02/16 09:59 06/02/16 18:25 650 MG Potassium Chloride/Sodium Chloride (1/2 Nss + 20meq KCl 1000ml) 1,000 ml @ 150 mls/hr Q6H40M IV 06/02/16 13:30 07/02/16 13:29 06/03/16 09:28 150 MLS/HR Objective Vital Signs Date Time Temp Pulse Resp B/P Pulse Ox O2 Delivery O2 Flow Rate FiO2 06/03/16 15:57 37.0 93 18 118/74 99 Room Air 06/03/16 15:30 Room Air 06/03/16 08:14 36.5 76 18 118/68 98 06/03/16 08:00 98 Room Air 06/03/16 00:00 Room Air 06/02/16 23:06 36.5 85 18 115/72 98 Room Air Physical Exam General Appearance: WD/WN, no apparent distress Neck: supple, trachea midline Respiratory/Chest: chest non-tender, lungs clear, normal breath sounds, no respiratory distress, no accessory muscle use Cardiovascular: regular rate, rhythm, no edema, no murmur Abdomen: normal bowel sounds, non tender, soft Extremities: no pedal edema, no calf tenderness Neurologic/Psychiatric: alert, normal mood/affect, oriented x 3 Skin: normal color, warm/dry, no rash Assessment and Plan This is a 20 y/o female with hx of Sickle Cell Disease presented to the ED with acute pain crises involving b/l LE X 5 days, which is not relieved by ibuprofen and Percocet at home. Patient was admitted to the hospital and started on IV Fluids and IV Dilaudid. Patient still have intermittent pain at rest but overall the pain is improving. Increased the Dilaudid to 1mg. 1. RLE pain, Rt flank pain - Secondary to Sickle Cell Pain crisis - Pain management with Dilaudid 1mg q4h and Toradol 30mg Q4h prn - C/w 1/2NSS+20meq KCL @150mls/hr 2. Hx Sickle Cell Disease - Patient has infrequent crises - Transfusion is not indicated at his moment given asymptomatic - Hydroxyurea not indicated at this time due to infrequency of crises 3. Migraine - Patient complains of migraine headache today - Will start Acetaminophen 650mg q4h prn 4. DVT Prophylaxis - Lovenox 40mg 5. Code Status - Full code Reviewed: Pt Seen/Exam by Me History Pt had been hopeful yesterday that she would be able to go home today, but with ongoing pain to R thigh, lower leg. She is having pain in her R foot now as well , at rest at times. No further chest pain. No SOB. Eating without issue. Agree with HPI/ROS as noted. General Appearance: WD/WN, no apparent distress Respiratory: normal breath sounds, no respiratory distress Cardiovascular: normal peripheral pulses, regular rate, rhythm Gastrointestinal: non tender, soft Extremities: non-tender, no pedal edema Neurologic/Psychiatric: alert, normal mood/affect Skin Characteristics: normal color, warm/dry Assessment/Plan Resident Physician Supervision Note: I discussed the case with the resident and agree with the findings and plan as documented in the note. Any exceptions or clarifications are listed here: Sickle cell crisis, pt with hx of same, likely precipitated by cold weather Cr WNL Ongoing IVF, pain meds Chest pain episode x1 and no recurrence EKG, CXR, trop neg Documented By: Ayesha Thapa
[2016-06-03] MEDS ORDERED: HYDROmorphone INJ 0.5 MG/0.5 ML SYR IV PRN (18:30)
[2016-06-03] MEDS: ONDANSETRON INJ 2 MG/ML 2 ML VIAL IV PRN (19:35)
[2016-06-04 00:42] VITALS: BP 120/75; PULSE 80; TEMP 36.5; O2SAT 98
[2016-06-04] MEDS: KETOROLAC TROMETHAMINE 30 MG/ML VIAL IV PRN (05:41)
[2016-06-04] MEDS: SODIUM CHLOR 0.45% + 20MEQ KCL 1,000 ML IV SCH ×2 (05:41→11:50)
[2016-06-04 06:01] LABS: HEMATOCRIT 31.6 % (37-47); MEAN CORPUSCULAR HEMOGLOBIN 25.8 pg (25-34); MEAN CORPUSCULAR HGB CONC 34.8 g/dl (32-36); MEAN PLATELET VOLUME 11.5 fL (7.4-10.4); PLATELET COUNT 215 K/uL (130-400); RED BLOOD COUNT 4.27 M/uL (4.2-5.4); WHITE BLOOD COUNT 4.94 K/uL (4.8-10.8)
[2016-06-04 06:57] LABS: CREATININE 0.83 mg/dl (0.60-1.20)
[2016-06-04 07:43] VITALS: BP 154/80; PULSE 95; TEMP 36.8; O2SAT 98
[2016-06-04 07:47] VITALS: O2SAT 98
[2016-06-04 08:00] VITALS: O2SAT 98
[2016-06-04] MEDS: MAGNESIUM HYDROXIDE SUSP 30 ML UDC PO PRN (08:40)
[2016-06-04] MEDS: ONDANSETRON INJ 2 MG/ML 2 ML VIAL IV PRN (08:40)
[2016-06-04] MEDS: ENOXAPARIN 40 MG/0.4 ML SYR SQ SCH (08:40)
[2016-06-04] MEDS: POLYETHYLENE (MIRALAX) 17 GM PACK PO PRN (08:40)
[2016-06-04] MEDS ORDERED: OXYC1TAB3 PO (13:28)
[2016-06-04] MEDS ORDERED: OXYCODONE HCL IR 5 MG TAB (IMMEDIATE RELEASE) PO ONE (14:45)
[2016-06-04] MEDS ORDERED: NURSING VERBAL MED ORDER ONE (14:45)
[2016-06-04 15:58] VITALS: BP 108/69; PULSE 95; TEMP 36.9; O2SAT 98
--- NOTE | 2016-06-04 16:15 | Discharge Instructions ---
Discharge Instructions Date of Service Jun 04, 2016. Admission Reason for Admission: Failure Of Op Treatment, Sickle Cell Pain Crisis Discharge Discharge Diagnosis / Problem: Sickle Cell Crisis Discharge Goals Goal(s): Decrease discomfort, Improve function, Improve nutritional status, Learn about illness Activity Recommendations Activity Limitations: resume your previous activity . Instructions / Follow-Up Instructions / Follow-Up Drink plenty of water and refrain from extreme changes in weather. You have been prescribed a 6 day course of Oxycodone. You are to take one pill every 4 hours as long as your pain persists. If you find that your pain is not lessening in the next 48 hours or is worsening please return to the hospital. Follow up with your primary care provider or [facility] as needed. If you do not have a PCP in [place], Dr. Tidwell would be happy to see you at his clinic beside the hospital. The address is: [address] [place] [address] (the building next to the hospital) [address] [place], [place] Current Hospital Diet Patient's current hospital diet: Regular Diet Discharge Diet Recommended Diet: Regular Diet Pending Studies Studies pending at discharge: no Medical Emergencies . Who to Call and When: Medical Emergencies: If at any time you feel your situation is an emergency, please call 911 immediately. . Non-Emergent Contact Non-Emergency issues call your: Primary Care Provider Call Non-Emergent contact if: your pain is not controlled, your pain is worsening, your pain is unusual for you, your pain is concerning you . . "Provider Documentation" section prepared by Mark Anthony Tidwell. VTE Core Measure Inpt VTE Proph given/why not?: Unfractionated heparin SQ Resident Involvement: Resident Care Provided Care Provided: Adult Hospital Medicine
--- NOTE | 2016-06-04 16:29 | Discharge Summary ---
Discharge Summary Date of Service Jun 04, 2016. (Mark Anthony Tidwell M.D.) Discharge Summary Admission Date: May 31, 2016 at 22:22 Discharge Date: Jun 04, 2016 Discharge Disposition: Home Principal Diagnosis: Sickle Cell Crisis (Mark Anthony Tidwell M.D.) Medication Reconciliation New Medications: Oxycodone Ir (Roxicodone Ir) 5 Mg Tab 5 MG PO Q4H PRN for Severe Pain for 6 Days, #24 TAB Continued Medications: Ibuprofen (Motrin) 600 Mg Tab 600 MG PO Q6H PRN for Pain, TAB Discontinued Medications: Oxycodone/Acetaminophen 5MG/325MG (Percocet 5MG/325MG) Tab 1 TAB PO QID for 30 Days, #120 TAB PAIN Discharge Exam The patient was seen and examined at bedside. Patient rates that her pain is better controlled, only a 5/10 today in her left knee. Patient also hasn't had a recent BM and is complaining of abdominal pain. She has taken Milk of Mag two days ago and she believes she took Miralax the previous day. Patient is tolerating PO liquids and solids well. She feels that she gets pain crises once every two years - she is happy with the shower maid she sees back home. Plan of care was described to the patient and all questions were answered. PHYSICAL EXAM General Appearance: WD/WN, no apparent distress Neck: supple, trachea midline Respiratory/Chest: chest non-tender, lungs clear, normal breath sounds, no respiratory distress, no accessory muscle use Cardiovascular: regular rate, rhythm, no edema, no murmur Abdomen: normal bowel sounds, non tender, soft Extremities: no pedal edema, no calf tenderness, left knees are equal in temperature, no visible swelling in the left or the right knee, FROM in all extremities, no tenderness to joint palpation in the ankle, knee or wrists. Neurologic/Psychiatric: alert, normal mood/affect, oriented x 3 Skin: normal color, warm/dry, no rash Review of Systems Review of Systems: Constitutional: No chills, No fever Respiratory: No cough, No sputum Cardiovascular: No chest pain Abdomen: No constipation, No diarrhea, No nausea, No pain, No vomiting ( Mark Anthony Tidwell M.D.) Hospital Course This is a 20F with hx of Sickle Cell Disease presented to the ED with acute pain crises involving bilateral lower extremities x 5 days, which is not relieved by ibuprofen and Percocet at home. Patient was admitted to the hospital and started on IV Fluids and IV Dilaudid. During the hospital course the amount of Dilauted the patient received /24 hours decreased from 3mg to 2.5 mg to 2mg. Patient was discharged with Oxycodone 5mg Q4PRN (24 pills). During her hospital stay the patient received IV and PO hydration. The patient stated she was happy with the management of her shower maid at home. During the hospital stay the patient complained of migraines which were treated with Acetaminophen 650mg PO. DVT prophylaxis was given with Lovenox 40mg SQ. Patient 's constipation was successfully resolved on 06/04/2016. Total Time Spent: Greater than 30 minutes This includes examination of the patient, discharge planning, medication reconciliation, and communication with other providers. (Mark Anthony Tidwell M.D.) Resident Physician Supervision Note: I interviewed and examined the patient. Discussed with Dr. Tidwell and agree with findings and plan as documented in the note. Any exceptions or clarifications are listed here: None Documented By: Long Sarkar feeling better, still pain. wants to go home. understands risks/benefits but thinks will be OK nad, breathing unlaobred, vitals noted, no pallor or icterus sickle cell crisis - improving. stable for home. to stay well hydrated, stay warm. oxycodone prn pain. f/u PCP. for now since crises are few/far between and not overly severe can hold off on heme/onc (Long Sarkar, D.O.) Discharge Instructions Please refer to the electronic Patient Visit Report (Discharge Instructions) for additional information. (Mark Anthony Tidwell M.D.)
[2016-06-04 16:51] VITALS: BP 108/69; PULSE 95; TEMP 36.9; O2SAT 98
== END 2016-06-04 17:05 | disposition home or self-care (01) | DRG 812 ==
LOC: ENRESERVDT → ENRESERVTM → C.EDB 18:55 → C.MS2W 22:22
PROVIDERS: ADMIT Internal Medicine; ATTEND Family Medicine
DX: D57.00 Hb-SS disease with crisis, unspecified (principal); R07.9 Chest pain, unspecified; G43.909 Migraine, unspecified, not intractable, without status migrainosus; M79.604 Pain in right leg; M79.605 Pain in left leg; R10.9 Unspecified abdominal pain; Z79.891 Long term (current) use of opiate analgesic; Z79.1 Long term (current) use of non-steroidal anti-inflammatories (NSAID)